=== PATIENT | female | born 1990 | race Caucasian/White ===

== ENCOUNTER 2022-05-15 15:59 | Outpatient (CLI) ==
[~2022-05-15] VITALS: Ht 157.5 cm; Wt 72.8 kg
[2022-05-15 16:24] VITALS: BP 124/84
[2022-05-15 16:25] VITALS: BP 124/84
[2022-05-15 16:48] VITALS: BP 117/72
[2022-05-15] MEDS ORDERED: METOCLOPRAMIDE 10MG TAB PO ONE (17:05)
[2022-05-15] MEDS ORDERED: diphenhydrAMINE 25MG CAP PO ONE (17:05)
[2022-05-15] MEDS ORDERED: ACET-897 PO (17:11)
== END 2022-05-15 18:36 | disposition home or self-care (01) ==
LOC: M LDO 15:59
PROVIDERS: ATTEND Obstetrics & Gynecology
DX: O99.353 Diseases of the nervous system complicating pregnancy, third trimester (principal); G43.909 Migraine, unspecified, not intractable, without status migrainosus; Z3A.30 30 weeks gestation of pregnancy; O9A.213 Injury, poisoning and certain other consequences of external causes complicating pregnancy, third trimester; T39.95XA Adverse effect of unspecified nonopioid analgesic, antipyretic and antirheumatic, initial encounter
CPT/HCPCS: 59025; G0463

== ENCOUNTER 2022-07-17 19:50 | Inpatient (IN) | payer OTHER ==
[~2022-07-17] VITALS: Ht 157.5 cm; Wt 79.3 kg
[2022-07-17] VITALS (12 sets, daily range): BP systolic 121–143; BP diastolic 73–96
[~2022-07-17 19:50] MED LIST: ACET-897 PO
[2022-07-17] MEDS ORDERED: PRENTAB9 PO (20:07)
[2022-07-17] MEDS ORDERED: HOME MED LIST COMPLETE! XX SCH (20:10)
[2022-07-17] MEDS ORDERED: LACTATED RINGER'S 1000 ML IV STA (21:53)
[2022-07-17] MEDS ORDERED: TRANEXAMIC ACID INJection 1,000 MG in NS 100 ML IV PRN (21:55)
[2022-07-17] MEDS ORDERED: LIDOCAINE 1% MDV 20ML VIAL INFIL PRN (21:55)
[2022-07-17] MEDS ORDERED: OXYTOCIN INJ 10 UNITS/ML VIAL (J2590) IM PRN (21:55)
[2022-07-17] MEDS ORDERED: METHYLERGONOVINE MALEATE 0.2 MG/ML VIAL (J2210) IM PRN (21:55)
[2022-07-17] MEDS ORDERED: OXYTOCIN DRIP 30 UNITS in IV 1 EA IV PRN ×6 (21:55)
[2022-07-17] MEDS ORDERED: CARBOPROST TROMETHAMINE 250 MCG/ML AMP IM PRN (21:55)
[2022-07-17 22:34] LABS: HEMATOCRIT 31.9 % (36.0-47.0); HEMOGLOBIN 10.1 g/dl (12.0-15.5); MEAN CORPUSCULAR HEMOGLOBIN 25.7 pg (27.0-33.0); MEAN CORPUSCULAR HGB CONC 31.7 g/dl (32.0-36.5); MEAN CORPUSCULAR VOLUME 81.2 fl (80.0-96.0); PLATELET COUNT, AUTOMATED 180 10^3/uL (150-450); RED BLOOD COUNT 3.93 10^6/uL (4.00-5.40)
[2022-07-17] MEDS ORDERED: NALOXONE INJ 0.4MG/1ML VIAL (J2310 PER 1MG) IV PRN (23:10)
[2022-07-17] MEDS ORDERED: ONDANSETRON 4MG 2ML VIAL IV PRN (23:10)
[2022-07-17] MEDS ORDERED: EPIDURAL/PCA KEYS XX PRN (23:10)
[2022-07-17] MEDS ORDERED: LR 500 ML IV PRN (23:10)
[2022-07-17] MEDS ORDERED: ePHEDrine SULFATE 25 MG/5 ML(5MG/ML) SYRINGE IVP PRN (23:10)
[2022-07-17] MEDS ORDERED: diphenhydrAMINE 50MG/ML VIAL (J1200) IV PRN (23:10)
[2022-07-17] MEDS: LR 1,000 ML IV SCH (23:33)
[2022-07-17] MEDS: FENTANYL/ROPIVACAINE/NACL BAG 100 ML EPIDURAL SCH (23:50)
[2022-07-18] VITALS (45 sets, daily range): BP systolic 94–181; BP diastolic 54–90
[2022-07-18] MEDS: OXYTOCIN DRIP 30 UNITS in IV 1 EA IV SCH ×2 (08:33→10:49)
[2022-07-18] MEDS: DOCUSATE SODIUM 100MG CAPSULE PO SCH ×2 (09:00→22:39)
[2022-07-18] MEDS: FENTANYL/ROPIVACAINE/NACL BAG 100 ML EPIDURAL SCH (09:13)
[2022-07-18 10:13] LABS: CORD GAS ABE A -3.8; CORD GAS ABE V -1.7; CORD GAS HCO3 A 23.7 MEQ/L; CORD GAS HCO3 V 21.5 MEQ/L; CORD GAS O2 SAT A 36.6 %; CORD GAS O2 SAT V 91.8 %; CORD GAS PCO2 A 51.9 mmHg; CORD GAS PH A 7.278 UNITS; CORD GAS PH V 7.431 UNITS; CORD GAS PO2 A 17.7 mmHg; CORD GAS PO2 V 44.6 mmHg; CORD GAS SBC A 19.7 MEQ/L; CORD GAS SBC V 22.9 MEQ/L; CORD GAS TCO2 A 25.3 MEQ/L; CORD GAS TCO2 V 22.5 MEQ/L
[2022-07-18] MEDS: LR 1,000 ML IV SCH (10:36)
[2022-07-18] MEDS ORDERED: ACETAMINOPHEN TAB 650MG DOSE (2X325MG) PO PRN (11:00)
[2022-07-18] MEDS ORDERED: DIBUCAINE 1% OINTMENT 30GM TOP PRN (11:00)
[2022-07-18] MEDS ORDERED: ACETAMINOPHEN 500 MG TAB PO PRN (11:00)
[2022-07-18 11:16] LABS: BASO % 0.2 % (0.0-1.0); HEMATOCRIT 28.8 % (36.0-47.0); HEMOGLOBIN 8.7 g/dl (12.0-15.5); LYMPH # 1.9 10^3/uL (1.5-5.0); LYMPH % 11.2 % (24.0-44.0); MEAN CORPUSCULAR HEMOGLOBIN 25.7 pg (27.0-33.0); MEAN CORPUSCULAR HGB CONC 30.2 g/dl (32.0-36.5); MONO % 5.9 % (2.0-8.0); NEUTROPHILS # 13.7 10^3/uL (1.5-8.5); NEUTROPHILS % 81.8 % (36.0-66.0); PLATELET COUNT, AUTOMATED 187 10^3/uL (150-450); RED BLOOD COUNT 3.39 10^6/uL (4.00-5.40); WHITE BLOOD COUNT 16.7 10^3/uL (4.0-10.0)
[2022-07-18 11:27] LABS: INR 1.17; PROTHROMBIN TIME 15.3 SECONDS (12.7-14.5)
[2022-07-18 11:28] LABS: PARTIAL THROMBOPLASTIN TIME 30.5 SECONDS (25.9-37.0)
[2022-07-18] MEDS ORDERED: KETOROLAC 30 MG/ML 1ML VIAL IV ONE (12:00)
[2022-07-18] MEDS ORDERED: ceFAZolin SOD 2 GM in IV 1 EA IV ONE (12:00)
[2022-07-18] MEDS ORDERED: OXYTOCIN DRIP 30 UNITS in IV 1 EA IV SCH (12:00)
[2022-07-18] MEDS: METHYLERGONOVINE MALEATE 0.2 MG TAB PO SCH ×3 (14:15→22:39)
[2022-07-18] MEDS: PRENATAL VITAMINS CHEWABLE TABLET PO SCH (14:15)
[2022-07-18] MEDS ORDERED: IBUPROFEN 800 MG TAB PO PRN (16:00)
[2022-07-18] MEDS: FERROUS SULFATE 325MG TAB PO SCH (16:02)
[2022-07-18] MEDS: IBUPROFEN 600MG TAB PO PRN (22:39)
[2022-07-19] VITALS (8 sets, daily range): BP systolic 90–115; BP diastolic 55–73
[2022-07-19] MEDS: METHYLERGONOVINE MALEATE 0.2 MG TAB PO SCH ×3 (03:19→10:15)
[2022-07-19] MEDS: IBUPROFEN 600MG TAB PO PRN (05:32)
[2022-07-19 07:00] LABS: HEMATOCRIT 23.8 % (36.0-47.0); HEMOGLOBIN 7.2 g/dl (12.0-15.5); MEAN CORPUSCULAR HEMOGLOBIN 25.7 pg (27.0-33.0); MEAN CORPUSCULAR HGB CONC 30.3 g/dl (32.0-36.5); PLATELET COUNT, AUTOMATED 172 10^3/uL (150-450); WHITE BLOOD COUNT 15.3 10^3/uL (4.0-10.0)
[2022-07-19] MEDS ORDERED: IBUP80TA PO (08:35)
[2022-07-19] MEDS ORDERED: FERR1TAB8 PO (08:35)
[2022-07-19] MEDS ORDERED: diphenhydrAMINE 50MG CAP PO STA (08:54)
[2022-07-19] MEDS: PRENATAL VITAMINS CHEWABLE TABLET PO SCH (09:26)
[2022-07-19] MEDS: DOCUSATE SODIUM 100MG CAPSULE PO SCH (09:26)
[2022-07-19] MEDS: FERROUS SULFATE 325MG TAB PO SCH (09:27)
== END 2022-07-19 17:43 | disposition home or self-care (01) | DRG 806 ==
LOC: M LDO 19:50 → M LDI 21:55 → M OBS 07-18 14:32
PROVIDERS: ADMIT Obstetrics & Gynecology; ATTEND Advanced Practice Midwife
PROC: 10E0XZZ Delivery of Products of Conception, External Approach (ICD-10-PCS; principal; 2022-07-18)
PROC: 0UQMXZZ Repair Vulva, External Approach (ICD-10-PCS; 2022-07-18)
PROC: 30233N1 Transfusion of Nonautologous Red Blood Cells into Peripheral Vein, Percutaneous Approach (ICD-10-PCS; 2022-07-18)
DX: O66.0 Obstructed labor due to shoulder dystocia (principal); Z37.0 Single live birth; O72.1 Other immediate postpartum hemorrhage; Z3A.39 39 weeks gestation of pregnancy; O71.82 Other specified trauma to perineum and vulva; O99.02 Anemia complicating childbirth; D64.9 Anemia, unspecified

== ENCOUNTER → 2024-07-19 | Outpatient (CLI) | payer OTHER ==
[~2024-07-19] MED LIST changes: +FERR1TAB8 PO; +IBUP80TA PO; +ISOVUE-300 61% 100ML VIAL As Ordered ONE; +LIDOCAINE 1% MDV 20ML VIAL As Ordered ONE; +PRENTAB9 PO; +PROHANCE 279.3MG/ML 5ML VIAL As Ordered ONE
== END ==
LOC: M RAD 06:20
PROVIDERS: ATTEND Family Medicine
DX: M25.511 Pain in right shoulder (principal)
CPT/HCPCS: 23350; 73223; 77002; A9576; Q9967

== ENCOUNTER → 2025-05-22 | Outpatient (CLI) | payer OTHER ==
[~2025-05-22] MED LIST changes: -ISOVUE-300 61% 100ML VIAL As Ordered ONE; -LIDOCAINE 1% MDV 20ML VIAL As Ordered ONE; -PROHANCE 279.3MG/ML 5ML VIAL As Ordered ONE
== END ==
LOC: M WHC 13:35
PROVIDERS: ATTEND Nurse Practitioner Primary Care
DX: N63.20 Unspecified lump in the left breast, unspecified quadrant (principal); R92.313 Mammographic fatty tissue density, bilateral breasts
CPT/HCPCS: 77066; G0279

== ENCOUNTER → 2025-07-10 | Outpatient (CLI) | payer OTHER | LOC: M PLAIMG 13:51 | PROVIDERS: ATTEND Student in an Organized Health Care Education/Training Program | DX: H72.91 Unspecified perforation of tympanic membrane, right ear (principal); H92.09 Otalgia, unspecified ear; J01.90 Acute sinusitis, unspecified ==